=== PATIENT | male | born 1975 | race Two or more races ===

== ENCOUNTER 2021-03-30 21:07 | Emergency (ER) | payer MEDICARE, MEDICAID ==
[~2021-03-30] VITALS: Ht 175.3 cm; Wt 89.5 kg
[2021-03-30] MEDS ORDERED: AMLO-258 PO (21:44)
[2021-03-30] MEDS ORDERED: QUET400T54 PO (21:44)
[2021-03-30] MEDS ORDERED: PANT-31 PO (21:44)
[2021-03-30] MEDS ORDERED: METO25TA6 PO (21:44)
[2021-03-30] MEDS ORDERED: METF-845 PO (21:44)
[2021-03-30] MEDS ORDERED: TOLT2CAP PO (21:44)
[2021-03-30] MEDS ORDERED: ESCI5SOL2 PO (21:44)
[2021-03-30] MEDS ORDERED: OMEG-102 PO (21:44)
[2021-03-30] MEDS ORDERED: GABA-1181 PO (21:44)
[2021-03-30] MEDS ORDERED: ASPI-1444 PO (21:44)
[2021-03-30] MEDS ORDERED: SIMV-260 PO (21:44)
[2021-03-30 22:03] LABS: EOSINOPHILS % (AUTO) 0.5 % (1.0-6.0); HEMATOCRIT 42.6 % (41-53); HEMOGLOBIN 14.4 g/dL (13.5-17.5); LYMPHOCYTES # (AUTO) 1.9 K/uL (1.0-4.8); LYMPHOCYTES % (AUTO) 14.2 % (22.0-44.0); MEAN CORPUSCULAR HEMOGLOBIN 29.3 pg (26.0-34.0); MEAN CORPUSCULAR HGB CONC 33.8 G/dL (31.0-37.0); MEAN CORPUSCULAR VOLUME 87 fL (80-100); MONOCYTES % (AUTO) 0.1 % (2.0-9.0); NEUTROPHILS # (AUTO) 11.2 K/uL (1.8-7.7); PLATELET COUNT (AUTO) 286 K/uL (150-450); RED BLOOD CELL COUNT(AUTO) 4.92 MIL/uL (4.50-5.90); RED CELL DISTRIBUTION WIDTH 13.9 % (11.5-14.5)
[2021-03-30 22:04] LABS: NEUTROPHILS % (AUTO) 85.2 % (40.0-70.0)
[2021-03-30 22:10] LABS: APPEARANCE,URINE CLOUDY (CLEAR); BILIRUBIN,URINE PRELIM. POSITIVE (NEGATIVE); GLUCOSE, URINE (UA) NEGATIVE (NEGATIVE); KETONES,URINE TRACE mg/dL (NEGATIVE); LEUKOCYTE ESTERASE ,URINE SMALL (NEGATIVE); NITRATE,URINE NEGATIVE (NEGATIVE); OCCULT BLOOD,URINE NEGATIVE (NEGATIVE); PH,URINE 5.5 (5.0-8.0); PROTEIN,URINE NEGATIVE (NEGATIVE)
[2021-03-30 22:12] LABS: ANION GAP 6 mmol/L (8-16); CALCIUM, TOTAL 9.6 mg/dL (8.8-10.5); CARBON DIOXIDE 29 mmol/L (22-29); CHLORIDE 104 mmol/L (98-107); GLOMERULAR FILTR. RATE CALC > 60 mL/min (>60); GLUCOSE,RANDOM 140 mg/dL (70-110); POTASSIUM 3.8 mmol/L (3.5-5.1); SODIUM SERUM 139 mmol/L (136-145); UREA NITROGEN, BLOOD 26 mg/dL (7-18)
[2021-03-30 22:18] LABS: ALANINE AMINOTRANSFERASE 69 U/L (12-78); ALBUMIN 4.4 g/dL (3.4-5.0); ALKALINE PHOSPHATASE 103 U/L (46-116); ASPARTATE AMINOTRANSFERASE 33 U/L (15-37); BILIRUBIN,TOTAL 0.3 mg/dL (0.1-1.0); LIPASE 73 U/L (73-393); TOTAL PROTEIN, SERUM 8.4 g/dL (6.4-8.2)
[2021-03-30 22:20] LABS: BACTERIA,URINE Rare /HPF (None Seen); MUCUS,URINE Few LPF (None Seen)
[2021-03-31] MEDS ORDERED: IOHEXOL 350 MG/ML 100 ML VIAL ONE (01:22)
[2021-03-31] MEDS ORDERED: SODIUM CHLORIDE 0.9% 100 ML ONE (01:23)
[2021-03-31] MEDS ORDERED: IOHEXOL 350 MG/ML 150 ML VIAL ONE (01:48)
[2021-03-31] MEDS ORDERED: AMOX1TAB16 PO (04:57)
[2021-03-31] MEDS ORDERED: DICY20TA2 PO (05:02)
[2021-03-31 05:05] VITALS: BP 130/77
== END 2021-03-31 05:41 | disposition home or self-care (01) ==
LOC: EMS 21:13
DX: K52.9 Noninfective gastroenteritis and colitis, unspecified (principal); F41.9 Anxiety disorder, unspecified; F31.9 Bipolar disorder, unspecified; E11.9 Type 2 diabetes mellitus without complications; I10 Essential (primary) hypertension; F20.9 Schizophrenia, unspecified; Z79.84 Long term (current) use of oral hypoglycemic drugs
CPT/HCPCS: 36415; 74177; 80053; 81001; 82962; 83690; 85025; 87086; 99285; J7050; Q9967

== ENCOUNTER 2024-03-22 22:25 | Inpatient (IN) | payer MEDICARE, MEDICAID ==
[~2024-03-22] VITALS: Ht 170.2 cm; Wt 88.9 kg
[~2024-03-22 22:25] MED LIST: AMLO-258 PO; AMOX-457 PO; ASPI-1444 PO; DICY20TA95 PO; ESCI5SOL2 PO; GABA-1181 PO; METF-845 PO; METO25TA6 PO; OMEG-102 PO; PANT-31 PO; QUET400T54 PO; SIMV-260 PO; TOLT2CAP PO
[2024-03-22] MEDS: ALBUTEROL SULFATE 2.5 MG/0.5 ML NEB SOLUTION NEB ONE (23:17)
[2024-03-22] MEDS: IPRATROPIUM BROMIDE 0.5 MG/2.5 ML NEB SOLUTION NEB ONE (23:17)
[2024-03-22] MEDS: MethylPREDNISolone SOD SUCC 125 MG/2 ML VIAL IVP ONE (23:21)
[2024-03-22] MEDS: ACETAMINOPHEN 1000 MG/ISO-OSM 100 ML IV ONE (23:22)
[2024-03-22] MEDS: SODIUM CHLORIDE 0.9% 1,000 ML IV ONE (23:22)
[2024-03-22 23:50] VITALS: PULSE 92; RESP 25; O2SAT 90
[2024-03-22 23:52] VITALS: PULSE 92; RESP 26; O2SAT 90
[2024-03-22 23:54] LABS: COVID AG,FIA SOURCE NASAL SWAB
[2024-03-23 00:07] LABS: INFLUENZA TYPE A NEGATIVE FOR TYPE A (NEGATIVE); INFLUENZA TYPE B NEGATIVE FOR TYPE B (NEGATIVE)
[2024-03-23 00:09] LABS: SARS-COV2 (COVID) ANTIGEN,FIA Negative (Negative)
[2024-03-23] MEDS: AZITHROMYCIN 500 MG/NS 250 ML IV ONE (00:10)
[2024-03-23] MEDS: CefTRIAXone 1 GM/DEXTROSE 50 ML IV ONE (00:11)
[2024-03-23 00:24] LABS: BASOPHILS % (AUTO) 0.4 % (0.0-2.0); EOSINOPHILS % (AUTO) 0 % (1.0-6.0); HEMATOCRIT 33.9 % (41-53); HEMOGLOBIN 11.7 g/dL (13.5-17.5); LYMPHOCYTES # (AUTO) 0.5 K/uL (1.0-4.8); LYMPHOCYTES % (AUTO) 13.1 % (22.0-44.0); MEAN CORPUSCULAR HEMOGLOBIN 31.3 pg (26.0-34.0); MEAN CORPUSCULAR HGB CONC 34.4 G/dL (31.0-37.0); MEAN CORPUSCULAR VOLUME 91 fL (80-100); MONOCYTES # (AUTO) 0.2 K/uL (0.1-1.0); MONOCYTES % (AUTO) 5.1 % (2.0-9.0); NEUTROPHILS % (AUTO) 81.4 % (40.0-70.0); PLATELET COUNT (AUTO) 236 K/uL (150-450); RED BLOOD CELL COUNT(AUTO) 3.73 MIL/uL (4.50-5.90); RED CELL DISTRIBUTION WIDTH 12.9 % (11.5-14.5); WHITE BLOOD COUNT (AUTO) 3.7 K/uL (4.5-11.0)
[2024-03-23 00:34] LABS: ANION GAP 11 mmol/L (8-16); CALCIUM, TOTAL 8.9 mg/dL (8.8-10.5); CARBON DIOXIDE 25 mmol/L (22-29); CHLORIDE 99 mmol/L (98-107); CREATININE 1.08 mg/dL (0.60-1.30); GLOMERULAR FILTR. RATE CALC > 60 mL/min (>60); GLUCOSE,RANDOM 109 mg/dL (70-110); POTASSIUM 3.4 mmol/L (3.5-5.1); SODIUM SERUM 135 mmol/L (136-145); UREA NITROGEN, BLOOD 10 mg/dL (7-18)
[2024-03-23 00:38] LABS: LACTIC ACID 1.2 mmol/L (0.4-2.0)
[2024-03-23 00:48] LABS: B-TYPE NATRIURETIC PEPTIDE 105 pg/mL (0-100)
[2024-03-23 00:57] LABS: ALANINE AMINOTRANSFERASE 45 U/L (12-78); ALBUMIN 3.1 g/dL (3.4-5.0); ALKALINE PHOSPHATASE 46 U/L (46-116); ASPARTATE AMINOTRANSFERASE 63 U/L (15-37); BILIRUBIN,TOTAL 0.4 mg/dL (0.1-1.0); CREATINE KINASE, TOTAL ONLY 779 U/L (39-308); TOTAL PROTEIN, SERUM 6.9 g/dL (6.4-8.2); TROPONIN I-HIGH SENSITIVITY 9 ng/L (<76)
[2024-03-23] MEDS ORDERED: ALBUTEROL SULFATE 2.5 MG/0.5 ML NEB SOLUTION NEB PRN (02:30)
[2024-03-23] MEDS ORDERED: IPRATROPIUM BROMIDE 0.5 MG/2.5 ML NEB SOLUTION NEB PRN (02:30)
[2024-03-23] MEDS: SODIUM CHLORIDE 0.9% 1,000 ML IV ONE ×2 (02:44→12:15)
[2024-03-23 05:59] LABS: APPEARANCE,URINE CLEAR (CLEAR); BILIRUBIN,URINE NEGATIVE (NEGATIVE); COLOR,URINE LIGHT YELLOW (YELLOW); GLUCOSE, URINE (UA) NEGATIVE (NEGATIVE); KETONES,URINE TRACE mg/dL (NEGATIVE); LEUKOCYTE ESTERASE ,URINE NEGATIVE (NEGATIVE); OCCULT BLOOD,URINE NEGATIVE (NEGATIVE); PROTEIN,URINE NEGATIVE (NEGATIVE); SPECIFIC GRAVITIY, URINE 1.012 (1.003-1.030); UROBILINOGEN,URINE <=1.0 mg/dL (<=1.0)
[2024-03-23 06:09] LABS: NITRATE,URINE NEGATIVE (NEGATIVE)
[2024-03-23] MEDS: MethylPREDNISolone SOD SUCC 125 MG/2 ML VIAL IVP SCH (06:13)
[2024-03-23 08:46] VITALS: BP 116/95; PULSE 76; RESP 18; TEMP 98.2; O2SAT 94
[2024-03-23] MEDS: TOLTERODINE TARTRATE 2 MG ER CAPSULE PO SCH (10:50)
[2024-03-23] MEDS: ASPIRIN 81 MG DR TABLET PO SCH (10:50)
[2024-03-23] MEDS: GuaiFENesin SR 600 MG ER TABLET PO SCH (10:50)
[2024-03-23] MEDS: METOPROLOL TARTRATE 25 MG TABLET PO SCH (10:51)
[2024-03-23] MEDS: BENZONATATE 100 MG CAPSULE PO SCH ×2 (10:51→16:45)
[2024-03-23] MEDS: GABAPENTIN 300 MG CAPSULE PO SCH (10:51)
[2024-03-23] MEDS: AmLODIPine BESYLATE 10 MG TABLET PO SCH (10:51)
[2024-03-23 12:11] VITALS: BP 105/71; PULSE 66; RESP 18; TEMP 98.1; O2SAT 91
[2024-03-23] MEDS ORDERED: POTASSIUM CHL 10 MEQ/WATER 50 ML IV PRN (12:30)
[2024-03-23] MEDS: POTASSIUM CHLORIDE 20 MEQ ER TABLET PO PRN (15:19)
[2024-03-23 16:06] LABS: GLUCOMETER DEV NAME(LOC) ER.7; GLUCOSE,POINT OF CARE 158 MG/DL (70-110)
[2024-03-23 16:14] VITALS: BP 96/60; PULSE 106; RESP 18; TEMP 98.7; O2SAT 88
[2024-03-23] MEDS ORDERED: HYDR-4527 PO (17:12)
[2024-03-23] MEDS ORDERED: ESCI20TA87 PO (17:12)
[2024-03-23] MEDS ORDERED: BUSP10TA23 PO (17:12)
[2024-03-23] MEDS ORDERED: RISP4TAB94 PO (17:12)
[2024-03-23] MEDS ORDERED: BUPR-514 PO (17:12)
[2024-03-23] MEDS ORDERED: TRAZ-257 PO (17:13)
[2024-03-23] MEDS ORDERED: ALBU18HF12 IH (17:21)
[2024-03-23] MEDS ORDERED: FLUT1BLS11 IH (17:21)
[2024-03-23] MEDS ORDERED: LEVO50 PO (17:21)
[2024-03-23] MEDS ORDERED: NITR0.4T52 SL (17:21)
[2024-03-23] MEDS ORDERED: FENO160T75 PO (17:21)
[2024-03-23] MEDS ORDERED: MULT-413 PO (17:21)
[2024-03-23] MEDS: IPRATROPIUM BROMIDE 0.5 MG/2.5 ML NEB SOLUTION NEB SCH (18:00)
[2024-03-23] MEDS: ALBUTEROL SULFATE 2.5 MG/0.5 ML NEB SOLUTION NEB SCH (19:53)
[2024-03-23 19:57] VITALS: BP 110/68; PULSE 76; RESP 19; TEMP 97.8; O2SAT 95
[2024-03-23 19:59] VITALS: PULSE 74; RESP 22; O2SAT 90
[2024-03-23 20:00] VITALS: PULSE 74; RESP 22; O2SAT 90
[2024-03-23] MEDS: SIMVASTATIN 20 MG TABLET PO SCH (20:50)
[2024-03-23 21:00] LABS: HEMATOCRIT 35.5 % (41-53); HEMOGLOBIN 11.7 g/dL (13.5-17.5)
[2024-03-23] MEDS: PANTOPRAZOLE SODIUM 80 MG in SODIUM CHLORIDE 0.9% 100 ML IV SCH (21:45)
[2024-03-23] MEDS: CefTRIAXone 1 GM/DEXTROSE 50 ML IV SCH (23:13)
[2024-03-23 23:21] LABS: PH,URINE DRUG SCREEN 6.5 (5.0-8.0)
[2024-03-23 23:28] LABS: ALCOHOL, URINE DRUG SCREEN NEGATIVE (NEGATIVE); AMPHET/METH SCREEN,URINE NEGATIVE (NEGATIVE); BARBITURATE SCREEN, URINE NEGATIVE (NEGATIVE); BENZODIAZEPINES SCREEN,URINE NEGATIVE (NEGATIVE); CANNABINOID SCREEN,URINE NEGATIVE (NEGATIVE); COCAINE SCREEN,URINE NEGATIVE (NEGATIVE); METHADONE SCREEN, URINE NEGATIVE (NEGATIVE); OPIATE SCREEN,URINE NEGATIVE (NEGATIVE); PHENCYCLIDINE SCREEN,URINE NEGATIVE (NEGATIVE)
[2024-03-24] VITALS (13 sets, daily range): BP systolic 104–123; BP diastolic 61–79; PULSE 77–90; RESP 16–24; TEMP 98–98.8; O2SAT 87–92
[2024-03-24] MEDS: AZITHROMYCIN 500 MG/NS 250 ML IV SCH (00:17)
[2024-03-24 03:45] LABS: ANION GAP 11 mmol/L (8-16); CALCIUM, TOTAL 8.9 mg/dL (8.8-10.5); CARBON DIOXIDE 24 mmol/L (22-29); CHLORIDE 102 mmol/L (98-107); CREATININE 1.05 mg/dL (0.60-1.30); GLOMERULAR FILTR. RATE CALC > 60 mL/min (>60); GLUCOSE,RANDOM 209 mg/dL (70-110); POTASSIUM 3.6 mmol/L (3.5-5.1); SODIUM SERUM 137 mmol/L (136-145); UREA NITROGEN, BLOOD 11 mg/dL (7-18)
[2024-03-24 03:47] LABS: HEMATOCRIT 34.1 % (41-53); HEMOGLOBIN 11.7 g/dL (13.5-17.5)
[2024-03-24 03:49] LABS: BASOPHILS % (AUTO) 0.1 % (0.0-2.0); EOSINOPHILS % (AUTO) 0 % (1.0-6.0); HEMATOCRIT 34.2 % (41-53); HEMOGLOBIN 11.6 g/dL (13.5-17.5); LYMPHOCYTES # (AUTO) 0.5 K/uL (1.0-4.8); LYMPHOCYTES % (AUTO) 7.6 % (22.0-44.0); MEAN CORPUSCULAR HEMOGLOBIN 31.1 pg (26.0-34.0); MEAN CORPUSCULAR HGB CONC 33.8 G/dL (31.0-37.0); MEAN CORPUSCULAR VOLUME 92 fL (80-100); MONOCYTES # (AUTO) 0.3 K/uL (0.1-1.0); MONOCYTES % (AUTO) 4.6 % (2.0-9.0); PLATELET COUNT (AUTO) 252 K/uL (150-450); RED BLOOD CELL COUNT(AUTO) 3.73 MIL/uL (4.50-5.90); RED CELL DISTRIBUTION WIDTH 13.4 % (11.5-14.5); WHITE BLOOD COUNT (AUTO) 6.8 K/uL (4.5-11.0)
[2024-03-24 03:51] LABS: NEUTROPHILS % (AUTO) 87.7 % (40.0-70.0)
[2024-03-24 09:41] LABS: CREATINE KINASE, TOTAL ONLY 758 U/L (39-308)
[2024-03-24 11:32] LABS: HEMATOCRIT 35.4 % (41-53); HEMOGLOBIN 11.7 g/dL (13.5-17.5)
[2024-03-24 15:34] LABS: HEMATOCRIT 35.4 % (41-53)
[2024-03-24] MEDS: BusPIRone HCL 10 MG TABLET PO SCH (20:41)
[2024-03-25] VITALS (12 sets, daily range): BP systolic 114–125; BP diastolic 71–82; PULSE 80–98; RESP 18–26; TEMP 97.8–98.5; O2SAT 88–93
[2024-03-25 07:23] LABS: BASOPHILS % (AUTO) 0.1 % (0.0-2.0); EOSINOPHILS % (AUTO) 0 % (1.0-6.0); HEMATOCRIT 36.1 % (41-53); HEMOGLOBIN 12.3 g/dL (13.5-17.5); LYMPHOCYTES # (AUTO) 0.5 K/uL (1.0-4.8); LYMPHOCYTES % (AUTO) 6.3 % (22.0-44.0); MEAN CORPUSCULAR HEMOGLOBIN 31.4 pg (26.0-34.0); MEAN CORPUSCULAR HGB CONC 34.1 G/dL (31.0-37.0); MEAN CORPUSCULAR VOLUME 92 fL (80-100); MONOCYTES # (AUTO) 0.5 K/uL (0.1-1.0); MONOCYTES % (AUTO) 6.3 % (2.0-9.0); NEUTROPHILS # (AUTO) 7.2 K/uL (1.8-7.7); PLATELET COUNT (AUTO) 236 K/uL (150-450); RED BLOOD CELL COUNT(AUTO) 3.92 MIL/uL (4.50-5.90); RED CELL DISTRIBUTION WIDTH 13.6 % (11.5-14.5); WHITE BLOOD COUNT (AUTO) 8.2 K/uL (4.5-11.0)
[2024-03-25 07:32] LABS: ANION GAP 7 mmol/L (8-16); CALCIUM, TOTAL 9.1 mg/dL (8.8-10.5); CARBON DIOXIDE 29 mmol/L (22-29); CHLORIDE 102 mmol/L (98-107); CREATININE 0.97 mg/dL (0.60-1.30); GLOMERULAR FILTR. RATE CALC > 60 mL/min (>60); GLUCOSE,RANDOM 196 mg/dL (70-110); POTASSIUM 3.4 mmol/L (3.5-5.1); SODIUM SERUM 138 mmol/L (136-145); UREA NITROGEN, BLOOD 12 mg/dL (7-18)
[2024-03-25 07:38] LABS: NEUTROPHILS % (AUTO) 87.3 % (40.0-70.0); RBC MORPHOLOGY COMMENT NORMAL RBC MORPH
[2024-03-25] MEDS: ESCITALOPRAM OXALATE 20 MG TABLET PO SCH (08:12)
[2024-03-25 10:17] LABS: CREATINE KINASE, TOTAL ONLY 490 U/L (39-308)
[2024-03-25] MEDS: RisperiDONE 4 MG TABLET PO SCH (13:47)
[2024-03-25] MEDS: BuPROPion HCL XL 150 MG ER TABLET PO SCH (13:47)
[2024-03-25] MEDS: TraZODone HCL 100 MG TABLET PO SCH (20:52)
[2024-03-26] VITALS (14 sets, daily range): BP systolic 122–142; BP diastolic 70–90; PULSE 75–99; RESP 18–24; TEMP 97.3–98.5; O2SAT 87–93
[2024-03-26 06:50] LABS: EOSINOPHILS % (AUTO) 0 % (1.0-6.0); HEMATOCRIT 34.9 % (41-53); HEMOGLOBIN 11.5 g/dL (13.5-17.5); LYMPHOCYTES # (AUTO) 0.4 K/uL (1.0-4.8); LYMPHOCYTES % (AUTO) 5.8 % (22.0-44.0); MEAN CORPUSCULAR HEMOGLOBIN 30.5 pg (26.0-34.0); MEAN CORPUSCULAR HGB CONC 33.1 G/dL (31.0-37.0); MEAN CORPUSCULAR VOLUME 92 fL (80-100); MONOCYTES # (AUTO) 0.5 K/uL (0.1-1.0); MONOCYTES % (AUTO) 8.5 % (2.0-9.0); NEUTROPHILS # (AUTO) 5.4 K/uL (1.8-7.7); PLATELET COUNT (AUTO) 295 K/uL (150-450); RED BLOOD CELL COUNT(AUTO) 3.78 MIL/uL (4.50-5.90); RED CELL DISTRIBUTION WIDTH 13.8 % (11.5-14.5); WHITE BLOOD COUNT (AUTO) 6.3 K/uL (4.5-11.0)
[2024-03-26 06:58] LABS: ANION GAP 11 mmol/L (8-16); CALCIUM, TOTAL 8.8 mg/dL (8.8-10.5); CARBON DIOXIDE 28 mmol/L (22-29); CHLORIDE 103 mmol/L (98-107); CREATININE 0.85 mg/dL (0.60-1.30); GLOMERULAR FILTR. RATE CALC > 60 mL/min (>60); GLUCOSE,RANDOM 188 mg/dL (70-110); POTASSIUM 3.3 mmol/L (3.5-5.1); SODIUM SERUM 142 mmol/L (136-145); UREA NITROGEN, BLOOD 16 mg/dL (7-18)
[2024-03-26 07:00] LABS: NEUTROPHILS % (AUTO) 85.7 % (40.0-70.0)
[2024-03-26 09:35] LABS: CREATINE KINASE, TOTAL ONLY 347 U/L (39-308)
[2024-03-26 15:18] LABS: TROPONIN I-HIGH SENSITIVITY 5 ng/L (<76)
[2024-03-26 15:27] LABS: B-TYPE NATRIURETIC PEPTIDE 34 pg/mL (0-100)
[2024-03-27] VITALS (10 sets, daily range): BP systolic 118–138; BP diastolic 52–83; PULSE 65–104; RESP 18–24; TEMP 98–98.7; O2SAT 89–93
[2024-03-27 06:50] LABS: BASOPHILS % (AUTO) 0.1 % (0.0-2.0); EOSINOPHILS % (AUTO) 0 % (1.0-6.0); HEMATOCRIT 33.4 % (41-53); HEMOGLOBIN 11.1 g/dL (13.5-17.5); LYMPHOCYTES # (AUTO) 0.3 K/uL (1.0-4.8); LYMPHOCYTES % (AUTO) 4.8 % (22.0-44.0); MEAN CORPUSCULAR HEMOGLOBIN 30.3 pg (26.0-34.0); MEAN CORPUSCULAR HGB CONC 33.1 G/dL (31.0-37.0); MEAN CORPUSCULAR VOLUME 91 fL (80-100); MONOCYTES # (AUTO) 0.6 K/uL (0.1-1.0); MONOCYTES % (AUTO) 10.6 % (2.0-9.0); NEUTROPHILS # (AUTO) 4.6 K/uL (1.8-7.7); NEUTROPHILS % (AUTO) 84.5 % (40.0-70.0); PLATELET COUNT (AUTO) 351 K/uL (150-450); RED BLOOD CELL COUNT(AUTO) 3.66 MIL/uL (4.50-5.90); RED CELL DISTRIBUTION WIDTH 13.8 % (11.5-14.5); WHITE BLOOD COUNT (AUTO) 5.4 K/uL (4.5-11.0)
[2024-03-27 06:53] LABS: ANION GAP 7 mmol/L (8-16); CALCIUM, TOTAL 8.7 mg/dL (8.8-10.5); CARBON DIOXIDE 28 mmol/L (22-29); CHLORIDE 105 mmol/L (98-107); CREATININE 0.82 mg/dL (0.60-1.30); GLOMERULAR FILTR. RATE CALC > 60 mL/min (>60); GLUCOSE,RANDOM 176 mg/dL (70-110); POTASSIUM 3.5 mmol/L (3.5-5.1); SODIUM SERUM 140 mmol/L (136-145); UREA NITROGEN, BLOOD 18 mg/dL (7-18)
[2024-03-28 14:06] LABS: LEGIONELLA PNEUMO AG URINE Negative (Negative)
[2024-03-28 15:06] LABS: S PNEUMO SOURCE Urine; STREP PNEUMONIAE AG URINE Negative (Negative)
== END 2024-03-27 19:30 | DRG 177 ==
LOC: EMS 22:26 → EDH 03-23 02:17 → 5N 03-23 08:07
PROVIDERS: ADMIT Internal Medicine; ATTEND Internal Medicine
PROC: 5A0945A Assistance with Respiratory Ventilation, 24-96 Consecutive Hours, High Flow/Velocity Cannula (ICD-10-PCS; principal; 2024-03-24)
PROC: 5A0935A Assistance with Respiratory Ventilation, Less than 24 Consecutive Hours, High Flow/Velocity Cannula (ICD-10-PCS; 2024-03-26)
DX: J15.69 Pneumonia due to other Gram-negative bacteria (principal); J96.01 Acute respiratory failure with hypoxia; M62.82 Rhabdomyolysis; E87.1 Hypo-osmolality and hyponatremia; D72.819 Decreased white blood cell count, unspecified; I10 Essential (primary) hypertension; E87.6 Hypokalemia; Z20.822 Contact with and (suspected) exposure to COVID-19; E11.9 Type 2 diabetes mellitus without complications; E78.5 Hyperlipidemia, unspecified; K44.9 Diaphragmatic hernia without obstruction or gangrene; K57.30 Diverticulosis of large intestine without perforation or abscess without bleeding; K76.0 Fatty (change of) liver, not elsewhere classified; N28.1 Cyst of kidney, acquired; F41.9 Anxiety disorder, unspecified; F25.0 Schizoaffective disorder, bipolar type; G47.00 Insomnia, unspecified; Z91.51 Personal history of suicidal behavior; Z79.899 Other long term (current) drug therapy
CPT/HCPCS: 71045; 71250; 80048; 80076; 80307; 81003; 82550; 82962; 83605; 83880; 84132; 84484; 85014; 85018; 85025; 87040; 87449; 87804; 87899; 93005; 93306; 94060; 94640; 99285; J0131; J0456; J0696; J2470; J2919; J7050; 36415-L1; 36415-TC; J7613